=== PATIENT | male | born 1980 | race Two or more races ===

== ENCOUNTER 2024-08-04 13:05 | Inpatient (IN) | payer MEDICAID, OTHER ==
[~2024-08-04] VITALS: Ht 177.8 cm; Wt 98.0 kg
[2024-08-04] MEDS: KETOROLAC TROMETH 60MG/2ML VIAL IM ONE (15:51)
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
[2024-08-04] MEDS ORDERED: ONDANSETRON HCL 4 MG/2 ML VIAL IV PRN (18:30)
[2024-08-04] MEDS ORDERED: MORPHINE SULFATE INJ 2 MG/ml SYRG IV PRN ×2 (18:30→21:15)
[2024-08-04] MEDS ORDERED: ACETAMINOPHEN 325 MG TAB PO PRN (18:30)
[2024-08-04] MEDS ORDERED: HYDROcodone-ACET 5/325MG TAB PO PRN (18:30)
[2024-08-04] MEDS ORDERED: DOCUSATE SOD 100 MG CAP PO PRN (18:30)
[2024-08-04 18:52] LABS: Basophils # (auto) 0.1 10 ^3/uL (0-0.2); Basophils % (auto) 0.5 % (0.0-2.0); Eosinophils # (auto) 0.2 10 ^3/uL (0-0.8); Eosinophils % (auto) 1.6 % (0.0-7.0); Hematocrit 49.1 % (41.0-53.0); Hemoglobin 16.9 g/dL (13.5-17.5); Lymphocytes # (auto) 2.1 10 ^3/uL (0.4-5.4); Lymphocytes % (auto) 21.1 % (10.0-50.0); Mean Corpuscular Hemoglobin 29.4 pg (28.0-32.0); Mean Corpuscular Hgb Conc. 34.4 g/dL (32.0-36.0); Mean Corpuscular Volume 85.3 fL (80.0-100.0); Monocytes # (auto) 0.6 10 ^3/uL (0-1.3); Monocytes % (auto) 6.1 % (0.0-12.0); Neutrophils # (auto) 6.9 10 ^3/uL (1.6-8.6); Neutrophils % (auto) 70.7 % (37.0-80.0); Nucleated Red Blood Cells % 0.1 %; Platelet Count (auto) 308 10^3/uL (140-450); Red Blood Cells 5.75 10^6/uL (4.5-5.90); Red Cell Distribution Width 14.3 % (11.8-14.3); White Blood Cell 9.8 10^3/uL (4.4-10.8)
[2024-08-04 19:07] LABS: Alanine Aminotransferase 16 U/L (7-40); Albumin 4.5 g/dL (3.2-4.8); Alkaline Phosphatase 92 U/L (46-116); Anion Gap 9 (5-15); Aspartate Aminotransferase 18 U/L (<34); BUN/Creatinine Ratio 6.3 (10.0-20.0); Calcium 9.9 mg/dL (8.7-10.4); Carbon Dioxide 28 mmol/L (20-31); Chloride 103 mmol/L (98-107); Sodium 140 mmol/L (136-145); Total Protein 7.4 g/dL (5.7-8.2)
[2024-08-04 19:08] LABS: Bilirubin, Total 1.4 mg/dL (0.2-1.0); Blood Urea Nitrogen 6 mg/dL (9-23); Glucose 117 mg/dL (74-106)
[2024-08-04] MEDS: SODIUM CHLORIDE 0.9% 1,000 ML IV SCH (20:16)
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
[2024-08-04] MEDS ORDERED: NITROGLYCERIN 0.4 MG SL TAB SL PRN (21:15)
[2024-08-05 00:11] VITALS: RESP 20; O2SAT 94
[2024-08-05] MEDS: KETOROLAC TROMETH 30 MG/ML 1ML VIAL IV ONE (00:30)
[2024-08-05] MEDS: hydrALAZINE HCL 20 MG/ML VL IV PRN (01:29)
[2024-08-05 06:26] LABS: Basophils # (auto) 0 10 ^3/uL (0-0.2); Basophils % (auto) 0.3 % (0.0-2.0); Eosinophils # (auto) 0.1 10 ^3/uL (0-0.8); Eosinophils % (auto) 1.2 % (0.0-7.0); Hematocrit 49.8 % (41.0-53.0); Hemoglobin 17.2 g/dL (13.5-17.5); Lymphocytes # (auto) 2.1 10 ^3/uL (0.4-5.4); Lymphocytes % (auto) 20.5 % (10.0-50.0); Mean Corpuscular Hemoglobin 29.3 pg (28.0-32.0); Mean Corpuscular Hgb Conc. 34.4 g/dL (32.0-36.0); Monocytes # (auto) 0.8 10 ^3/uL (0-1.3); Monocytes % (auto) 7.6 % (0.0-12.0); Neutrophils # (auto) 7.1 10 ^3/uL (1.6-8.6); Neutrophils % (auto) 70.4 % (37.0-80.0); Platelet Count (auto) 294 10^3/uL (140-450); Red Blood Cells 5.86 10^6/uL (4.5-5.90); Red Cell Distribution Width 14.2 % (11.8-14.3); White Blood Cell 10.1 10^3/uL (4.4-10.8)
[2024-08-05 06:55] LABS: Alanine Aminotransferase 18 U/L (7-40); Albumin 4.3 g/dL (3.2-4.8); Alkaline Phosphatase 92 U/L (46-116); Anion Gap 11 (5-15); Aspartate Aminotransferase 18 U/L (<34); BUN/Creatinine Ratio 8.8 (10.0-20.0); Calcium 9.3 mg/dL (8.7-10.4); Carbon Dioxide 26 mmol/L (20-31); Chloride 102 mmol/L (98-107); Glucose 96 mg/dL (74-106); Potassium 3.9 mmol/L (3.5-5.1); Sodium 139 mmol/L (136-145); Total Protein 7.4 g/dL (5.7-8.2)
[2024-08-05 06:56] LABS: Bilirubin, Total 1.5 mg/dL (0.2-1.0); Blood Urea Nitrogen 8 mg/dL (9-23)
[2024-08-05 08:00] VITALS: PULSE 99; RESP 16; O2SAT 93
[2024-08-05] MEDS: PANTOPRAZOLE 40 MG/10 ML VIAL INJ IV SCH (10:03)
[2024-08-05] MEDS: amLODIPine BESYLATE 5 MG TAB PO SCH (10:03)
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
[2024-08-05] MEDS: CYCLOBENZAPRINE HCL 10 MG TAB PO SCH (14:53)
[2024-08-05] MEDS: KETOROLAC TROMETH 30 MG/ML 1ML VIAL IV SCH (14:53)
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
[2024-08-05 19:30] VITALS: PULSE 98; RESP 16; O2SAT 95
[2024-08-05] MEDS: LOSARTAN POTASSIUM 50 MG TAB PO ONE (19:41)
[2024-08-05 21:20] VITALS: BP 153/101; PULSE 95; RESP 20; TEMP 97.7; O2SAT 93
[2024-08-05 21:22] VITALS: BP 153/101; PULSE 95; RESP 20; TEMP 97.7; O2SAT 93
[2024-08-05 21:24] VITALS: PULSE 98; RESP 20; O2SAT 93
[2024-08-06 01:00] VITALS: BP 133/86; PULSE 84; RESP 16; TEMP 97.7; O2SAT 96
[2024-08-06 05:00] VITALS: BP 146/97; PULSE 81; RESP 18; TEMP 97.7; O2SAT 96
[2024-08-06 07:21] LABS: Chloride 105 mmol/L (98-107); Potassium 3.9 mmol/L (3.5-5.1); Sodium 140 mmol/L (136-145)
[2024-08-06 07:22] LABS: Anion Gap 10 (5-15); Carbon Dioxide 25 mmol/L (20-31)
[2024-08-06 07:23] LABS: Basophils # (auto) 0 10 ^3/uL (0-0.2); Basophils % (auto) 0.4 % (0.0-2.0); Eosinophils # (auto) 0.2 10 ^3/uL (0-0.8); Hemoglobin 17.9 g/dL (13.5-17.5); Monocytes # (auto) 0.8 10 ^3/uL (0-1.3); Nucleated Red Blood Cells % 0.2 %; Red Cell Distribution Width 14.2 % (11.8-14.3); White Blood Cell 8.6 10^3/uL (4.4-10.8)
[2024-08-06 07:25] LABS: Eosinophils % (auto) 2.3 % (0.0-7.0); Hematocrit 51.3 % (41.0-53.0); Lymphocytes # (auto) 1.8 10 ^3/uL (0.4-5.4); Lymphocytes % (auto) 21.3 % (10.0-50.0); Mean Corpuscular Hemoglobin 29.6 pg (28.0-32.0); Mean Corpuscular Hgb Conc. 34.9 g/dL (32.0-36.0); Mean Corpuscular Volume 84.8 fL (80.0-100.0); Monocytes % (auto) 9.1 % (0.0-12.0); Neutrophils # (auto) 5.8 10 ^3/uL (1.6-8.6); Neutrophils % (auto) 66.9 % (37.0-80.0); Platelet Count (auto) 318 10^3/uL (140-450); Red Blood Cells 6.05 10^6/uL (4.5-5.90)
[2024-08-06 07:27] LABS: BUN/Creatinine Ratio 12.1 (10.0-20.0); Blood Urea Nitrogen 11 mg/dL (9-23); Glucose 91 mg/dL (74-106)
[2024-08-06 09:00] VITALS: BP 131/97; PULSE 79; RESP 18; TEMP 97.9; O2SAT 97
[2024-08-06] MEDS: LOSARTAN POTASSIUM 50 MG TAB PO SCH (09:29)
[2024-08-06] MEDS: amLODIPine BESYLATE 5 MG TAB PO SCH (09:30)
[2024-08-06] MEDS ORDERED: IBUP1TAB4 PO (11:14)
[2024-08-06] MEDS ORDERED: CYCL-839 PO (11:14)
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
[2024-08-06 13:00] VITALS: BP 132/90; PULSE 87; RESP 18; TEMP 97.9; O2SAT 96
[2024-08-06 15:39] VITALS: BP 131/97; PULSE 87; RESP 18; TEMP 36.6; O2SAT 96
[2024-08-07 10:24] LABS: Hepatitis B Surface Antigen Negative (Negative); Hepatitis C Antibody Negative (Negative)
== END 2024-08-06 16:30 | disposition home or self-care (01) | DRG 347 ==
LOC: ER 13:05 → OVERFLOW 21:11 → TELE-CENTR 08-05 21:22
PROVIDERS: ADMIT Student in an Organized Health Care Education/Training Program; ATTEND Nurse Practitioner Family
DX: S32.019A Unspecified fracture of first lumbar vertebra, initial encounter for closed fracture (principal); E66.9 Obesity, unspecified; S32.029A Unspecified fracture of second lumbar vertebra, initial encounter for closed fracture; I10 Essential (primary) hypertension; Z68.31 Body mass index [BMI] 31.0-31.9, adult; F17.200 Nicotine dependence, unspecified, uncomplicated; Z91.040 Latex allergy status; Q76.49 Other congenital malformations of spine, not associated with scoliosis; V29.99XA Rider (driver) (passenger) of other motorcycle injured in unspecified traffic accident, initial encounter; Y93.89 Activity, other specified; Y92.488 Other paved roadways as the place of occurrence of the external cause; Y99.8 Other external cause status
CPT/HCPCS: 36415; 72100; 72148; 80048; 80053; 85025; 86803; 87340; 96372; G0378; J1885; J2470